=== PATIENT | female | born 1965 | race Two or more races ===

== ENCOUNTER 2024-08-27 21:00 | Emergency (ER) | payer BC, SELFPAY ==
[2024-08-27 21:03] VITALS: BMI 31.1
[2024-08-27 21:13] VITALS: BP 180/85; PULSE 94; RESP 18; TEMP 36.6; O2SAT 97
--- NOTE | 2024-08-27 21:21 | XR_ITS ---
Examination: Hand, left 3 views Technique: Hand AP, oblique, lateral 3 views Date and time of exam: August 27, 2024 2135 hrs. Indications: Dog bite to the hand today, hand pain Findings: No acute fracture No dislocation No foreign body Impression: No acute fracture No opaque foreign body
--- NOTE | 2024-08-27 21:21 | XR_ITS ---
Examination: Hand, right 3 views Technique: Hand AP, oblique, lateral 3 views Date and time of exam: August 27, 2024 2135 hrs. Indications: Diabetic to the hand today, hand pain Findings: Soft tissue defect distal third digit No acute fracture No foreign body Impression: No opaque foreign body
--- NOTE | 2024-08-27 21:23 | PD.EDRME ---
Rapid Medical Screening Exam RME Arrival date/time: 08/27/24 21:00 59 yo f present to ED for c/o bilateral dog bites on hand today I have greeted and performed a focused initial assessment of this patient. A comprehensive ED assessment and evaluation of the patient, analysis of all test results, and completion of the medical decision making process will be conducted by additional ED providers. Chief Complaint: Animal Bite Time Seen by Provider: 08/27/24 21:09 Vital signs: Vital Signs Temperature 98 F 08/27/24 21:13 Pulse Rate 94 08/27/24 21:13 Respiratory Rate 18 08/27/24 21:13 Blood Pressure 180/85 H 08/27/24 21:13 Pulse Oximetry (%) 97 08/27/24 21:13 Oxygen Delivery Method Room Air 08/27/24 21:13
--- NOTE | 2024-08-27 21:52 | PD.EDANIML ---
ED Animal Bite RME/HPI General Chief Complaint: Animal Bite Stated Complaint: ddog bites both hands Time Seen by Provider: 08/27/24 21:09 Arrival date/time: 08/27/24 21:00 59 year old female present to emergency room with c/o of bilatal dog bite after trying to break up a fight with pet dogs. dogs are uptodate with vaccine. pt is unsure of tetanus vaccine. LOCATION: hands SEVERITY: Symptoms are described as being severe with limitations on activities of daily living QUALITY: Symptoms are described as being dull or achy CONTEXT: dog bites on bilteral hands DURATION/TIMING: The symptoms started approximately immediately prior to arrival ago and have been constant this then. ASSOCIATED SYMPTOMS: The patient is unable to identify any other associated symptoms. MODIFYING FACTORS: The patient is unable to identify any alleviating or aggravating symptoms. PERTINENT ROS: no fevers, no headache, no neck or chest pain, no unexplained nausea or vomiting, no focal neurological deficits REVIEW OF SYSTEMS: See History of Present Illness - with the exception of those mentioned in the history of present illness, all other systems reviewed and reported as negative GENERAL: In general the patient is awake, interactive, in an emergency department gurney. HEAD/EYES/EARS/NOSE/THROAT: normo-cephalic, atraumatic, mucus membranes are moist, anicteric, palpebral conjunctiva is pink, trachea is midline. CARDIOVASCULAR: regular rate and regular rhythm, no murmurs, heart sounds are not distant, strong pulses in all four extremities that are equal and symmetric bilateral upper and lower extremities, normal capillary refill. NEUROLOGICAL: cranio-facial features are symmetric, moves all four extremities equally without obvious limitations or weakness. EXTREMITY: right hand 3rd distal puncture wound, left hand multi puncture wound no bone exposure no tenderness to palpation over the long bones or large joints of the bilateral lower extremities, no joint swelling, no joint erythema, no unilateral leg swelling and no peripheral edema. SKIN: warm, dry, well-perfused, no jaundice, no rash, no telangiectasias or petechia. PSYCH: calm, cooperative, no evidence of psychosis or agitation RME / HPI RME / HPI narrative: 08/27/24 21:00 59 yo f present to ED for c/o bilateral dog bites on hand today I have greeted and performed a focused initial assessment of this patient. A comprehensive ED assessment and evaluation of the patient, analysis of all test results, and completion of the medical decision making process will be conducted by additional ED providers. Related Data Previous Rx's ?Medication ?Instructions ?Recorded amoxicillin 875 mg-potassium 1 tab PO Q12H #14 tabs 08/27/24 clavulanate 125 mg tablet Allergies Allergy/AdvReac Type Severity Reaction Status Date / Time No Known Allergies Allergy Verified 08/27/24 21:07 Course Course Course Narrative: The patient suffered a bite wound from a bilateral hand, but based on the history, exam, and any test performed, there does not seem to be a retained foreign body, nerve injury, vascular injury, tendon injury, or bone injury. xray negative, discussed not able to repair due to high risk of infection and leaving open/dressing applied Given the characteristics of this wound, the patient will require treatment with antibiotics. Rx: Augmentin 875mg PO BID x 7days Disposition: Patient will be discharged with strict return precautions and advice to follow up with primary MD within 24 hours for further evaluation. Quality Measures none Orders Category Date Time Status XR hand comp LT min 3V Stat Exams 08/27/24 21:21 Completed XR hand comp RT min 3V Stat Exams 08/27/24 21:21 Completed Acetaminophen Tab [Tylenol ES Tab] Med 08/27/24 21:21 Discontinued 1,000 mg PO X1 ONE Amoxicillin/Pot Clav 875 [Augmentin 875] Med 08/27/24 21:21 Discontinued 1 tab PO X1 ONE Tetanus, Diphtheria Toxoids/Pf [Tenivac-Adult] Med 08/27/24 21:21 Discontinued 0.5 ml IMI .ONCE ONE Vital Signs Vital signs: Vital Signs Temperature 98 F 08/27/24 21:13 Pulse Rate 94 08/27/24 21:13 Respiratory Rate 18 08/27/24 21:13 Blood Pressure 180/85 H 08/27/24 21:13 Pulse Oximetry (%) 97 08/27/24 21:13 Oxygen Delivery Method Room Air 08/27/24 21:13 Animal Bite Patient data External records reviewed:: None Clinical information provided by:: patient Social determinants that could affect healthcare access:: none Patient has the following chronic illnesses:: n/a How is presenting disease/condition affected by chronic disease/condition?: no chronic disease Evaluation data The following diagnostics were reviewed and interpreted by me:: radiology exam(s) Lab and/or radiology exams considered but not ordered:: n/a Interpretation Summary: xray b/l no acute findings Medications / Prescriptions Medications or Prescriptions considered but not ordered:: n/a Medication administrations:: Medication Administration History Discontinued Medications Acetaminophen (Acetaminophen 500 Mg Tablet) 1,000 mg PO X1 ONE Stop: 08/27/24 21:22 Amoxicillin/Clavulanate Potassium (Amoxicillin/Pot Clav 875 Tablet) 1 tab PO X1 ONE Stop: 08/27/24 21:22 Tetanus/Diphtheria Toxoids (Tetanus,Diphtheria Toxoids/Pf (Adult) 0.5 Ml Syringe) 0.5 ml IMi .ONCE ONE Stop: 08/27/24 21:22 as stated above Consultations Consultation(s) initiated? (list below): No Diagnosis Differential diagnosis animal bite: bite by animal, dog bite and other (fracture ) Most likely diagnosis given after review of the tests above:: dog bite hand Admission Indicated Admission indicated?: not indicated Admission Request Was there a request for admission?: No Disposition Plan Disposition Plan: Discharge Discharge Attestation Discharge Attestation: The patient and all family members were given an opportunity to ask questions and understood the discharge instructions. Discharge instructions specifically effects, indications for sooner follow up or return to the emergency department, and the expected course of current diagnosis. Patient condition: Stable Discharge Plan Plan Patient Disposition: HOME (Self Care) Health Concerns: Follow with PMD as directed Take tylenol or motrin as need Return to ED if sx worsen Prescriptions/Referrals Prescriptions/Med Rec: New amoxicillin-pot clavulanate 875-125 mg tablet 1 tab PO Q12H Qty: 14 0RF Problem List Clinical Impression: Dog bite Patient/Caregiver Discharge Instructions Education Materials: ED Dog Bite Print Language: Slovak Stand Alone Forms: Aleyda Award Info., Patient Portal Info Letter
[2024-08-27] MEDS: AMOXICILLIN/POT CLAV 875 TABLET 1 TAB PO (22:14)
[2024-08-27] MEDS: TETANUS,DIPHTHERIA TOXOIDS/PF (ADULT) 0.5 ML SYRINGE IMi (22:15)
[2024-08-27] MEDS: ACETAMINOPHEN 500 MG TABLET 1000 MG PO (22:15)
== END 2024-08-27 23:05 | disposition home or self-care (01) ==
PROVIDERS: Emergency Provider Emergency Medicine
DX: S60.572A Other superficial bite of hand of left hand, initial encounter (principal); S60.571A Other superficial bite of hand of right hand, initial encounter; W54.0XXA Bitten by dog, initial encounter; Z23 Encounter for immunization
CPT/HCPCS: 73130; 90471; 90714; 99283; A9270